=== PATIENT | male | born 2000 | race Caucasian/White ===

== ENCOUNTER 2022-04-05 22:14 | Emergency (ER) | payer OTHER ==
[~2022-04-05] VITALS: Ht 177.8 cm; Wt 93.0 kg
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
--- NOTE | 2022-04-05 23:48 | NUR ---
BLOOD COLLECTED AND SENT TO LAB
--- NOTE | 2022-04-05 23:49 | NUR ---
EMT AT BEDSIDE FOR EKG
[2022-04-05 23:52] LABS: BASOPHILS % (AUTO) 0.3 % (0.0-2.0); EOSINOPHILS % (AUTO) 0.1 % (0.0-6.0); HEMATOCRIT 48 % (39-51); HEMOGLOBIN 16.4 g/dL (13.5-17.5); LYMPHOCYTES # (AUTO) 1.3 K/uL (0.8-4.8); MEAN CORPUSCULAR HGB CONC 34 g/dl (31.0-36.0); MEAN CORPUSCULAR VOLUME 89 fL (80-96); MONOCYTES # (AUTO) 0.6 K/uL (0.1-1.30); MONOCYTES % (AUTO) 3.4 % (2.0-12.0); NEUTROPHILS % (AUTO) 89.2 % (43.0-81.0); PLATELET COUNT (AUTO) 302 K/uL (150-450); RED BLOOD CELL COUNT(AUTO) 5.39 MIL/uL (4.5-6.0); WHITE BLOOD COUNT (AUTO) 17.9 K/uL (4.3-11.0)
[2022-04-06] MEDS ORDERED: IV NS 0.9% 500 ML BAG IV ONE
--- NOTE | 2022-04-06 00:03 | NUR ---
PATIENT AT CT
[2022-04-06 00:11] LABS: CARBON DIOXIDE 29 mmol/L (21-32); CHLORIDE 101 mmol/L (98-107); CREATININE 1.2 mg/dL (0.6-1.3); GLUCOSE 102 mg/dL (74-106); POTASSIUM 3.9 mmol/L (3.5-5.1); SODIUM SERUM 137 mmol/L (136-145); UREA NITROGEN, BLOOD 10 mg/dL (7-18)
[2022-04-06 00:17] LABS: ALANINE AMINOTRANSFERASE 45 U/L (12-78); ALBUMIN 4.6 g/dL (3.4-5.0); ALKALINE PHOSPHATASE 77 U/L (46-116); ASPARTATE AMINOTRANSFERASE 25 U/L (15-37); BILIRUBIN,DIRECT 0.1 mg/dL (0.0-0.2); BILIRUBIN,TOTAL 0.6 mg/dL (0.2-1.0); TOTAL PROTEIN, SERUM 8.5 g/dL (6.4-8.2)
--- NOTE | 2022-04-06 00:40 | NUR ---
URINE COLLECTED AND SENTT O LAB
--- NOTE | 2022-04-06 02:00 | NUR ---
Patient discharged to home in stable condition. Written and verbal after care instructions given. Patient verbalizes understanding of instruction. IV removed. Catheter intact and site benign. Pressure and 4x4 applied to site. No bleeding noted.
[2022-04-06 02:06] VITALS: BP 140/90
== END 2022-04-06 02:16 | disposition home or self-care (01) ==
LOC: ER 22:27
DX: R55 Syncope and collapse (principal); F12.90 Cannabis use, unspecified, uncomplicated
CPT/HCPCS: 99285; 96360; 93005; 71045; 70450; 85025; 80048; 80076; 36415; 84484; 85730; 80320; 80307; J7040; G0480; J7030